=== PATIENT | female | born 1955 | race Caucasian/White ===

== ENCOUNTER 2016-11-30 11:31 | Outpatient (CLI) | payer OTHER ==
--- NOTE | 2016-11-30 12:21 | XRay Report ---
THORACIC SPINE THREE VIEWS: 11/30/16 11:31:00 CLINICAL: Back pain. FINDINGS: Mild levoscoliosis and mild degenerative change. No fracture or subluxation. The pedicles are intact. IMPRESSION: Scoliosis and mild degenerative change.
== END 2016-11-30 11:32 | disposition home or self-care (01) ==
LOC: SPVIMAG 11:31
DX: M41.84 Other forms of scoliosis, thoracic region (principal); M47.894 Other spondylosis, thoracic region; M54.9 Dorsalgia, unspecified; R82.99 Other abnormal findings in urine
CPT/HCPCS: 72072

== ENCOUNTER 2016-12-31 09:28 | Outpatient (CLI) | payer OTHER ==
--- NOTE | 2016-12-31 16:22 | Mammography Report ---
BILATERAL DIGITAL SCREENING MAMMOGRAM with CAD : 12/31/16 09:28:00 CLINICAL: Routine screening. COMPARISON:01/21/13 FINDINGS: The breasts are heterogeneously dense, which may obscure small masses. No mass, architectural distortion or suspicious calcifications. IMPRESSION: No mammographic evidence of malignancy. BI-RADS CATEGORY: 2 -- Benign RECOMMENDATION: Routine mammographic screening in one year. COMMENT: Patient follow-up letters are generated by our [employer] application.
== END 2016-12-31 09:29 | disposition home or self-care (01) ==
LOC: SPVWC 09:28
DX: Z12.31 Encounter for screening mammogram for malignant neoplasm of breast (principal)
CPT/HCPCS: 77067; G0202

== ENCOUNTER 2018-01-01 09:38 | Outpatient (CLI) | payer OTHER ==
--- NOTE | 2018-01-02 13:38 | Mammography Report ---
BILATERAL DIGITAL SCREENING MAMMOGRAM with CAD: 01/01/18 09:38:00 CLINICAL: Routine screening. COMPARISON:12/31/16 FINDINGS: The breasts are heterogeneously dense, which may obscure small masses. No mass, architectural distortion or suspicious calcifications. IMPRESSION: No mammographic evidence of malignancy. BI-RADS CATEGORY: 1 - - Negative RECOMMENDATION: Routine mammographic screening in one year. COMMENT: Patient follow-up letters are generated by our [employer] application.
== END 2018-01-01 09:39 | disposition home or self-care (01) ==
LOC: SPVWC 09:38
PROVIDERS: ATTEND General Practice
DX: Z12.31 Encounter for screening mammogram for malignant neoplasm of breast (principal)
CPT/HCPCS: 77067